=== PATIENT | female | born 1990 | race African-American/Black ===

== ENCOUNTER 2017-12-18 18:09 | Emergency (ER) | payer SELFPAY ==
[~2017-12-18] VITALS: Ht 160 cm; Wt 85.3 kg
[~2017-12-18 18:09] MED LIST: MULT-298 PO
[2017-12-18 18:50] VITALS: BP 128/74
--- NOTE | 2017-12-18 23:00 | NUR ---
PATIENT LEFT WITHOUT BEING SEEN BY DR. CELESTE. NO FURTHER CARE PROVIDED FOR PATIENT.
== END 2017-12-18 23:00 | disposition left against medical advice (07) ==
LOC: MED 18:09
DX: H92.01 Otalgia, right ear (principal); Z53.21 Procedure and treatment not carried out due to patient leaving prior to being seen by health care provider

== ENCOUNTER 2019-12-10 19:11 | Emergency (ER) | payer OTHER ==
[~2019-12-10] VITALS: Ht 160 cm; Wt 103.9 kg
[2019-12-10 19:16] VITALS: BP 134/99
--- NOTE | 2019-12-10 20:11 | NUR ---
29Y/O F, CAME IN TO ER WITH COMPLAINTS OF ABDOMINAL CRAMPS ASSOC. WITH HEAVY VAGINAL BLEEDING. PT REPORTS TAKING PILL 11/21/19 AND USES AVERAGE 5-8 PADS PER DAY. BLEEDING IS DARK RED BLOOD WITH SOME MODERATE SIZED CLOTS. NKA, HX: APPENDECTOMY AND REMOVAL ERUPTED CYSTS IN 2015. REPORTS NO KIDS AND NO CURRENT CONTROL. NO SOB OR COMPLAINTS OF PAIN AT THIS TIME. PT ALSO CONCERNED ABOUT PAIN/SWELLING AT RIGHT FOOT.
--- NOTE | 2019-12-10 20:40 | NUR ---
UA COLLECTED AND TAKEN TO LAB.
--- NOTE | 2019-12-10 20:43 | NUR ---
US AT BEDSIDE.
[2019-12-10 21:04] LABS: BASOPHILS % (AUTO) 0.3 % (0.0-2.0); EOSINOPHILS # (AUTO) 0.1 K/uL (0-0.4); EOSINOPHILS % (AUTO) 0.9 % (0.0-4.0); HEMATOCRIT 30.2 % (36-48); HEMOGLOBIN 9.4 g/dL (12.0-16.0); LYMPHOCYTES # (AUTO) 3.4 K/uL (2.5-16.5); LYMPHOCYTES % (AUTO) 25.3 % (20.5-51.1); MEAN CORPUSCULAR HEMOGLOBIN 24 pg (27-31); MEAN CORPUSCULAR HGB CONC 31 g/dL (33-37); MONOCYTES % (AUTO) 7.1 % (1.7-9.3); NEUTROPHILS # (AUTO) 8.8 K/uL (1.8-7.7); NEUTROPHILS % (AUTO) 66.4 % (42.2-75.2); PLATELET COUNT (AUTO) 309 K/uL (140-450); RED BLOOD CELL COUNT(AUTO) 3.87 MIL/uL (4.20-5.40); WHITE BLOOD COUNT (AUTO) 13.3 K/uL (4.8-10.8)
[2019-12-10 21:14] LABS: PROTHROMBIN TIME 10.2 secs (10.8-13.4)
[2019-12-10 21:21] LABS: ALBUMIN 3.7 g/dL (3.4-5.0); CARBON DIOXIDE 26.5 mmol/L (21-32); CREATININE 0.7 mg/dL (0.6-1.3); POTASSIUM 3.5 mmol/L (3.5-5.1); TOTAL BILIRUBIN 0.4 mg/dL (0.0-1.0)
[2019-12-10] MEDS ORDERED: METHYLERGONOVINE 0.2 MG/ML AMP IM ONE ×2 (23:20→23:30)
[2019-12-10 23:55] VITALS: BP 132/84
== END 2019-12-10 23:55 | disposition home or self-care (01) ==
LOC: MED 19:11
DX: O20.0 Threatened abortion (principal); O26.851 Spotting complicating pregnancy, first trimester; D64.9 Anemia, unspecified; Z3A.08 8 weeks gestation of pregnancy
CPT/HCPCS: 36415; 76817; 80053; 84702; 85025; 85610; 85730; 86901; 93971; 96372; 99284; J2210; Q0092; 81025

== ENCOUNTER 2020-01-13 13:39 | Emergency (ER) | payer OTHER ==
[~2020-01-13] VITALS: Ht 160 cm; Wt 102.5 kg
[2020-01-13 13:54] VITALS: BP 146/75
[2020-01-13] MEDS ORDERED: KETOROLAC 60 MG/2 ML VIAL IM ONE (14:00)
[2020-01-13] MEDS ORDERED: IBUPROFEN 800 MG TAB PO ONE (14:20)
[2020-01-13 16:08] VITALS: BP 128/78
== END 2020-01-13 16:05 | disposition home or self-care (01) ==
LOC: MED 13:39
DX: M25.571 Pain in right ankle and joints of right foot (principal); B35.4 Tinea corporis; J45.909 Unspecified asthma, uncomplicated; Z90.49 Acquired absence of other specified parts of digestive tract; Z79.899 Other long term (current) drug therapy
CPT/HCPCS: 73610; 96372; 99283; J1885; Q0092

== ENCOUNTER 2023-01-19 19:18 | Emergency (ER) | payer OTHER ==
[~2023-01-19] VITALS: Ht 160 cm; Wt 98.9 kg
[2023-01-19 19:55] VITALS: BP 124/71; PULSE 82; RESP 17; TEMP 98.2; O2SAT 100
[2023-01-19] MEDS ORDERED: ALBUTEROL 0.083% 2.5 MG/3 ML NEBU INH ONE (22:40)
[2023-01-19 22:50] VITALS: PULSE 84; RESP 16; O2SAT 99
[2023-01-19] MEDS ORDERED: ALBU0.0912 IH (23:14)
== END 2023-01-19 23:58 | disposition home or self-care (01) ==
LOC: MED 19:18
DX: O99.512 Diseases of the respiratory system complicating pregnancy, second trimester (principal); J06.9 Acute upper respiratory infection, unspecified; J45.909 Unspecified asthma, uncomplicated; Z3A.27 27 weeks gestation of pregnancy; Z79.899 Other long term (current) drug therapy
CPT/HCPCS: 94640; 99283; J7613